=== PATIENT | female | born 1955 | race Caucasian/White ===

== ENCOUNTER 2016-09-26 18:31 | Emergency (ER) | payer OTHER ==
[~2016-09-26] VITALS: Ht 152.4 cm; Wt 82.6 kg
[~2016-09-26 18:31] MED LIST: ASPI325T PO; CLIN150 PO; LANSO15 PO; PRED20 PO
[2016-09-26 18:37] VITALS: BP 158/76; PULSE 89; RESP 17; TEMP 98.1; O2SAT 96
--- NOTE | 2016-09-26 18:42 | PD ---
Physical Exam Date Seen by Provider: Sep 26, 2016 Time Seen by Provider: 18:40 Narrative 60 year old female presents to the emergency department for evaluation of RLQ abdominal pain. Patient reports history of appendectomy. Pain has been intermittent for approximately a year, but worsened today. No nausea, vomiting , diarrhea. Patient awaiting bed placement. Data Data Last Documented VS Vital Signs Date Time Temp Pulse Resp B/P Pulse Ox O2 Delivery O2 Flow Rate FiO2 09/26/16 18:37 98.1 89 17 158/76 96 MDM Supervised Visit with KORY: Evy Orr Sep 26, 2016 18:41
[2016-09-26] MEDS ORDERED: PRIL20CA9 PO (18:54)
--- NOTE | 2016-09-26 18:54 | PD ---
HPI Chief Complaint: Abdominal Pain Time Seen by Provider: 18:54 Travel History International Travel<30 days: No Contact w/Intl Traveler<30days: No Traveled to known affect area: No History of Present Illness HPI 60-year-old female presents to the emergency Department with complaint of right lower quadrant abdominal pain that has been on and off for the last 3-4 months with worsening of the past 2 weeks and then again worsening today. Pain was so bad she told her family that she needs come to the ER. She has not taken any medications or tried any trauma to relieve her symptoms. She denies dysuria, hematuria, urgency, frequency. Denies hematochezia. Reports having a normal bowel movement this morning. Denies fever, chills, nausea, vomiting, diarrhea. History of appendectomy. Denies history of kidney stones. Allergies to contrast media, Keflex, penicillin, sulfa. Does not have an established primary care provider. No other modifying factors or associated signs and symptoms. PFSH Past Medical History Hx Anticoagulant Therapy: No Cardiovascular Problems: No Chemotherapy: No Cerebrovascular Accident: No Diabetes: No GERD: Yes Respiratory: No ?: Not Past Surgical History Hysterectomy: Yes Oral Surgery: Yes Other Surgery: Yes (LUMPECTOMY) Social History Alcohol Use: No Tobacco Use: Yes (06/23 ppd) Substance Use: No Allergies-Medications (Allergen,Severity, Reaction): Coded Allergies: Iodinated Contrast Media (Verified Allergy, Severe, SWELLING, 09/26/16) Penicillin (Verified Allergy, Intermediate, 09/26/16) Keflex (Verified Allergy, Unknown, 09/26/16) Sulfa (Verified Allergy, Unknown, 09/26/16) Reported Meds & Prescriptions Reported Meds & Active Scripts Active Lortab (Hydrocodone-Acetaminophen) 5-325 Mg Tab 1 Tab PO Q4-6H PRN Reported Prilosec (Omeprazole) 20 Mg Cap 20 Mg PO DAILY Review of Systems Except as stated in HPI: all other systems reviewed are Neg Physical Exam Narrative GENERAL: Well-nourished, well-developed female patient, in no acute distress; afebrile, nontoxic-appearing SKIN: Warm and dry. HEAD: Atraumatic. Normocephalic. EYES: Pupils equal and round. No scleral icterus. No injection or drainage. ENT: Mucosa pink and moist. Airway patent. NECK: Trachea midline. CARDIOVASCULAR: Regular rate and rhythm. No murmur appreciated. RESPIRATORY: No accessory muscle use. Clear to auscultation. Breath sounds equal bilaterally. GASTROINTESTINAL: Obese. Abdomen soft, tenderness on palpation to right lower quadrant, nondistended. Hepatic and splenic margins not palpable. Bowel sounds are active 4 quadrants. Nonrigid. No rebound tenderness. No guarding. BACK: No CVA tenderness. MUSCULOSKELETAL: No obvious deformities. No clubbing. No cyanosis. No edema. NEUROLOGICAL: Awake and alert. Oriented 3. No obvious cranial nerve deficits. Motor grossly within normal limits. Normal speech. PSYCHIATRIC: Appropriate mood and affect; insight and judgment normal. Data Data Last Documented VS Vital Signs Date Time Temp Pulse Resp B/P Pulse Ox O2 Delivery O2 Flow Rate FiO2 09/26/16 21:05 89 20 150/74 98 09/26/16 19:01 Room Air 09/26/16 18:37 98.1 Orders Complete Blood Count With Diff (09/26/16 18:54) Comprehensive Metabolic Panel (09/26/16 18:54) Lipase (09/26/16 18:54) Urinalysis - C+S If Indicated (09/26/16 18:54) Iv Access Insert/Monitor (09/26/16 18:54) Ecg Monitoring (09/26/16 18:54) Oximetry (09/26/16 18:54) Sodium Chloride 0.9% Flush (Ns Flush) (09/26/16 19:00) Ct Abd/Pel W/O Iv Contrast (09/26/16 18:54) Labs Laboratory Tests Test 09/26/16 09/26/16 19:05 19:30 Urine Color LIGHT-YELLOW Urine Turbidity CLEAR Urine pH 6.5 Urine Specific [place] 1.005 Urine Protein NEG mg/dL Urine Glucose (UA) NEG mg/dL Urine Ketones NEG mg/dL Urine Occult Blood NEG Urine Nitrite NEG Urine Bilirubin NEG Urine Urobilinogen LESS THAN 2.0 MG/DL Urine Leukocyte Esterase MOD Urine WBC 1 /hpf Urine Squamous Epithelial 1 /hpf Cells Urine Bacteria FEW /hpf Microscopic Urinalysis Comment CULT NOT INDICATED White Blood Count 6.7 TH/MM3 Red Blood Count 4.65 MIL/MM3 Hemoglobin 14.2 GM/DL Hematocrit 41.1 % Mean Corpuscular Volume 88.4 FL Mean Corpuscular Hemoglobin 30.6 PG Mean Corpuscular Hemoglobin 34.6 % Concent Red Cell Distribution Width 13.7 % Platelet Count 170 TH/MM3 Mean Platelet Volume 9.1 FL Neutrophils (%) (Auto) 74.4 % Lymphocytes (%) (Auto) 16.6 % Monocytes (%) (Auto) 7.6 % Eosinophils (%) (Auto) 1.0 % Basophils (%) (Auto) 0.4 % Neutrophils # (Auto) 5.0 TH/MM3 Lymphocytes # (Auto) 1.1 TH/MM3 Monocytes # (Auto) 0.5 TH/MM3 Eosinophils # (Auto) 0.1 TH/MM3 Basophils # (Auto) 0.0 TH/MM3 CBC Comment DIFF FINAL Differential Comment Sodium Level 139 MEQ/L Potassium Level 3.6 MEQ/L Chloride Level 104 MEQ/L Carbon Dioxide Level 29.6 MEQ/L Anion Gap 5 MEQ/L Blood Urea Nitrogen 6 MG/DL Creatinine 0.64 MG/DL Estimat Glomerular Filtration 95 ML/MIN Rate Random Glucose 100 MG/DL Calcium Level 9.0 MG/DL Total Bilirubin 0.5 MG/DL Aspartate Amino Transf 10 U/L (AST/SGOT) Alanine Aminotransferase 12 U/L (ALT/SGPT) Alkaline Phosphatase 61 U/L Total Protein 7.0 GM/DL Albumin 3.7 GM/DL Lipase 100 U/L [facility] Medical Decision Making Medical Screen Exam Complete: Yes Emergency Medical Condition: Yes Medical Record Reviewed: Yes Differential Diagnosis Colitis, kidney stone, urinary tract infection, pyelonephritis, abscess Narrative Course 60-year-old female with right lower quadrant abdominal pain. Patient placed on cardiopulmonary monitor. IV set obtained. Allergies to contrast media. CBC, CMP, lipase ordered. Urinalysis ordered. CT abdomen/pelvis ordered. 1956: Urinalysis negative for infection. Urine Culture not indicated. 2030: CT abdomen/pelvis concludes: Abdomen/Pelvis CT 09/26/16 1854 Signed Impressions: Service Date/Time: Monday, September 26, 2016 19:17 - CONCLUSION: 1. 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 There is some induration in the medial aspect of the right inguinal hernia and around a segment of small bowel in the peritoneal cavity adjacent to this hernia. The mild thickening of the small bowel and minimal induration around this area is nonspecific. It could be secondary to it intermittently being involved in the adjacent hernia. It is not currently involved with that hernia. Other causes for mild inflammatory change including enteritis in a focal area of small bowel can be considered. No abscess is seen. 2. Midline abdominal hernia containing mesenteric fat. There is also a potential hernia seen at the right inguinal region. Tal Howell MD Call out to gen. surgeon. 2039: I spoke with Dr. Hager, general surgeon, and he recommended to call the radiologist and confirmed the findings are not acute and there is no incarcerated bowel seen on the CT scan; recommended for the patient to follow up with him in his office on Thursday or Thursday this coming week; and recommended giving the patient the option to stay and be observed for 23 hour observation. 2044: I called and spoke with Dr. Sosa, radiologist, and he reports the findings are chronic and there is an induration of the right inguinal hernia and nothing is acute at this time. 2049: I discussed the CT findings with the patient. On reexamination the patient says she is in no pain anymore and would like to be discharged home. The patient does not appear painful when she is resting comfortably in the bed. She has been up and ambulating in the hallway comfortably. The plan of care was discussed with Dr. Gee, my attending physician, and he agrees the patient is stable for discharge. The patient was instructed to return to the emergency department if symptoms return. The patient verbalized understanding and agreement with treatment plan. Lortab prescribed for home. Instructed patient to follow-up with Dr. Andersen, or general surgeon of choice, on Thursday or Thursday and she verbalizes understanding and agreement. Patient verbalizes understanding and agreement with treatment plan. Patient is medically cleared and stable for discharge. Discussed reasons to return to the emergency department. Instructed patient to follow up with primary care provider. Patient agrees with treatment plan. The patients vital signs are stable and the patient is stable for outpatient follow-up and treatment. Patient discharged home, stable and in no acute distress. Diagnosis Primary Impression: Right inguinal hernia Additional Impression: Spigelian hernia Referrals: Marco Hager MD Primary Care Physician Patient Instructions: General Instructions, Inguinal Hernia (ED) Additional Instructions: Follow-up with Dr. Bella, or general surgeon of choice, on Thursday or Thursday Follow-up with primary care provider Return to the emergency department immediately with worsening of symptoms Med/Other Pt SpecificInfo: Prescription(s) given Scripts Hydrocodone-Acetaminophen (Lortab)5-325 Mg Tab1 Tab PO Q4-6H PRN (PAIN) #15 TAB Ref 0 Prov:Phillip Gee MD 09/26/16 Disposition: 01 DISCHARGE HOME Condition: Stable Kelin Pichardo Sep 26, 2016 18:54
[2016-09-26] MEDS ORDERED: SODIUM CHLORIDE 0.9% FLUSH 10 ML FLUSH IV FLUSH PRN (19:00)
[2016-09-26 19:01] VITALS: PULSE 76; RESP 18; O2SAT 96
[2016-09-26 19:38] LABS: BACTERIA, URINE FEW /hpf; BLOOD, URINE NEG (NEG); COMMENT (UR) CULT NOT INDICATED; CULTURE IF INDICATED CULT NOT INDICATED; GLUCOSE,URINE NEG (NEG); KETONE, URINE NEG (NEG); NITRITE,URINE NEG (NEG); PH, URINE 6.5 (5.0-8.5); SQUAMOUS EPITHELIAL CELL URINE 1 /hpf (0-5); URINE COLOR LIGHT-YELLOW (YELLW/STRAW)
--- NOTE | 2016-09-26 20:01 | RADRPT ---
EXAM DATE/TIME: 09/26/2016 19:17 [facility] COMPARISON: CT ABDOMEN & PELVIS W/O CONTRAST, August 22, 2013, 17:40. INDICATIONS : Right lower quadrant pain times one year; worse today. ORAL CONTRAST: No oral contrast ingested. RADIATION DOSE: 16.72 CTDIvol (mGy) MEDICAL HISTORY : Gastroesophageal reflux disease. SURGICAL HISTORY : Hysterectomy. Lumpectomy ENCOUNTER: Initial ACUITY: 1 year PAIN SCALE: 6/10 LOCATION: Abdomen TECHNIQUE: Volumetric scanning of the abdomen and pelvis was performed. Using automated exposure control and adjustment of the mA and/or kV according to patient size, radiation dose was kept as low as reasonably achievable to obtain optimal diagnostic quality images. FINDINGS: The liver, spleen, pancreas, adrenal glands and kidneys appear grossly normal. Atheros clerotic calcifications are seen throughout the arterial system. No aneurysm is seen. The patient do es have a midline abdominal hernia at the umbilicus containing only mesenteric fat. There also appea rs to be bilateral Spigelian hernias seen lateral to the rectus abdominal muscles containing fat. Th ere is some induration seen in the medial right Spigelian hernia. There also appears to be some mini mal thickening of the an adjacent area of small bowel which is clearly within the peritoneal cavity. There is some minimal inflammatory change and induration seen in the fat around this segment of smal l bowel. There is also prominent fat within the right inguinal canal suggesting a possible hernia. T here is some scattered colonic diverticula without inflammatory change seen around the colon. The pel alexsandra structures appear grossly intact. The patient appears to be status post hysterectomy. No pelvic mass is seen. The bony structures are unremarkable. The lung bases are unremarkable. CONCLUSION: 1. 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 There is some induration in the medial aspect of the right ing uinal hernia and around a segment of small bowel in the peritoneal cavity adjacent to this hernia. T he mild thickening of the small bowel and minimal induration around this area is nonspecific. It coul d be secondary to it intermittently being involved in the adjacent hernia. It is not currently invol ric with that hernia. Other causes for mild inflammatory change including enteritis in a focal area of small bowel can be considered. No abscess is seen. 2. Midline abdominal hernia containing mesenteric fat. There is also a potential hernia seen at the right inguinal region. Tal Howell MD on September 26, 2016 at 19:47 Board Certified Radiologist. This report was verified electronically.
[2016-09-26 20:02] LABS: BASOPHIL % 0.4 % (0.0-2.0); EOSINOPHIL # 0.1 TH/MM3 (0-0.4); HEMATOCRIT 41.1 % (35.0-46.0); HEMO FLAGS DIFF FINAL; LYMPH % 16.6 % (9.0-44.0); LYMPHOCYTE # 1.1 TH/MM3 (1.0-4.8); MEAN CELL VOLUME 88.4 FL (80.0-100.0); MEAN CORPUSCULAR HEMOGLOBIN 30.6 PG (27.0-34.0); MEAN CORPUSCULAR HGB CONC 34.6 % (32.0-36.0); MONO % 7.6 % (0.0-8.0); NEUT % 74.4 % (16.0-70.0); PLATELET COUNT 170 TH/MM3 (150-450); RED BLOOD COUNT 4.65 MIL/MM3 (4.00-5.30); RED CELL DISTRIBUTION WIDTH 13.7 % (11.6-17.2); WHITE BLOOD COUNT 6.7 TH/MM3 (4.0-11.0)
[2016-09-26 20:15] LABS: ALKALINE PHOSPHATASE 61 U/L (45-117); ALT (GPT) 12 U/L (10-53); ANION GAP 5 MEQ/L (5-15); AST (GOT) 10 U/L (15-37); BICARBONATE 29.6 MEQ/L (21.0-32.0); BLOOD UREA NITROGEN 6 MG/DL (7-18); CHLORIDE 104 MEQ/L (98-107); GLOMERULAR FILTRATION RATE 95 ML/MIN (>89); POTASSIUM 3.6 MEQ/L (3.5-5.1); SODIUM (NA) 139 MEQ/L (136-145); TOTAL BILIRUBIN ADULT 0.5 MG/DL (0.2-1.0)
[2016-09-26] MEDS ORDERED: HYDR-3533 PO (20:57)
[2016-09-26 21:05] VITALS: BP 150/74
[2016-11-14] MEDS ORDERED: OMEP20TA PO (13:28)
[2016-11-18] MEDS ORDERED: HYDR-3533 PO (11:42)
[2016-11-18] MEDS ORDERED: PROT40TA PO (11:42)
[2016-11-18] MEDS ORDERED: SUCR1TAB PO (11:42)
[2016-11-18] MEDS ORDERED: OS-CTAB3 PO (11:42)
[2016-11-18] MEDS ORDERED: MULT1TAB61 PO (11:42)
== END 2016-09-26 21:08 | disposition home or self-care (01) ==
LOC: NEPD 18:31
DX: K40.90 Unilateral inguinal hernia, without obstruction or gangrene, not specified as recurrent (principal); K43.9 Ventral hernia without obstruction or gangrene; F17.200 Nicotine dependence, unspecified, uncomplicated; Z87.19 Personal history of other diseases of the digestive system
CPT/HCPCS: 74176; 80053; 81001; 83690; 85025

== ENCOUNTER → 2016-11-18 | Day surgery (SDC) | payer OTHER ==
[~2016-11-18] VITALS: Ht 149.9 cm; Wt 82.7 kg
[~2016-11-18] MED LIST changes: -ASPI325T PO; +CHLORHEXIDINE GLUCONATE 2 % 1 PACK (2 CLOTHS) TOPICAL PRN; -CLIN150 PO; +CLINDAMYCIN 600 MG/NS 100 ML IV SCH; +HYDR-3533 PO; +INSULIN HUMAN REGULAR 1,000 UNITS/10 ML VIAL SQ PRN; +LACTATED RINGER'S 1000 ML IV PRN; -LANSO15 PO; +METOPROLOL TARTRATE 25 MG TAB PO PRN; +MULT1TAB61 PO; +OMEP20TA PO; +OS-CTAB3 PO; -PRED20 PO; +PROT40TA PO; +SODIUM CHLORID 0.9% 500 ML IV PRN; +SODIUM CHLORIDE 0.9% INJ 100 ML ONE; +SUCR1TAB PO
[2016-11-18 11:49] VITALS: BP 139/74; PULSE 66; RESP 20; TEMP 99; O2SAT 94
--- NOTE | 2016-11-18 12:00 | EKG ---
Date Performed: 11/18/2016 Time Performed: 11:51:08 PTAGE: 60 years EKG: Sinus rhythm NORMAL ECG PREVIOUS TRACING : 03/15/2015 20.47 No significant change from previous tracing noted. DOCTOR: Dago Rojas Interpretating Date/Time 11/18/2016 12:00:16
[2016-11-18 12:22] LABS: AUTOMATED NEUTROPHIL # 3.9 TH/MM3 (1.8-7.7); BASOPHIL % 0.6 % (0.0-2.0); EOSINOPHIL # 0.1 TH/MM3 (0-0.4); EOSINOPHIL % 1.1 % (0.0-4.0); HEMATOCRIT 41.8 % (35.0-46.0); HEMO FLAGS DIFF FINAL; LYMPH % 22.7 % (9.0-44.0); LYMPHOCYTE # 1.3 TH/MM3 (1.0-4.8); MEAN CELL VOLUME 88.5 FL (80.0-100.0); MEAN CORPUSCULAR HEMOGLOBIN 28.8 PG (27.0-34.0); MEAN CORPUSCULAR HGB CONC 32.6 % (32.0-36.0); MONO % 8.4 % (0.0-8.0); NEUT % 67.2 % (16.0-70.0); PLATELET COUNT 141 TH/MM3 (150-450); RED BLOOD COUNT 4.73 MIL/MM3 (4.00-5.30); RED CELL DISTRIBUTION WIDTH 13.2 % (11.6-17.2); WHITE BLOOD COUNT 5.9 TH/MM3 (4.0-11.0)
[2016-11-18 12:52] LABS: BICARBONATE 27.7 MEQ/L (21.0-32.0)
== END | disposition home or self-care (01) ==
LOC: HSDC 11:04
PROVIDERS: ATTEND Surgery
DX: K43.6 Other and unspecified ventral hernia with obstruction, without gangrene (principal); Z01.810 Encounter for preprocedural cardiovascular examination; Z53.9 Procedure and treatment not carried out, unspecified reason
CPT/HCPCS: 80048; 85025; 93005; G0463; J7120; 99211

== ENCOUNTER → 2017-01-07 | Day surgery (SDC) | payer OTHER ==
[~2017-01-07] VITALS: Ht 152.4 cm; Wt 80.8 kg
[~2017-01-07] MED LIST changes: +*morphine SULFATE 8 MG/ML PERIprocedure ONLY ONE; +BUPIVACAINE LIPOSOME PF 1.3% 20 ML VIAL ONE; +CLINDAMYCIN PHOS 600 MG/4 ML VIAL ONE; +DO NOT ADM ANY ANTICOAGULANT DRUGS PRN; -HYDR-3533 PO; +LACTATED RINGER'S 1000 ML INJ 1,000 ML IV ONE; +MIDAZOLAM HCL 2 MG/2 ML VIAL ONE; +NORMOSOL R INJ 1,000 ML IV ONE; -OMEP20TA PO; +ONDANSETRON HCL 4 MG/2 ML VIAL IV PUSH ONE; +ONDANSETRON HCL 4 MG/2 ML VIAL ONE; +PROPOFOL 200 MG/20 ML AMP IV ONE; +SUGAMMADEX SODIUM 200 MG/2 ML VIAL IV PUSH ONE; +ePHEDrine/NS 25 MG/5 ML SYR IV ONE; +fentaNYL CITRATE 250 MCG/5 ML AMP ONE
[2017-01-07 10:21] VITALS: BP 137/69; PULSE 65; RESP 16; TEMP 98.2; O2SAT 96
[2017-01-07 10:50] LABS: AUTOMATED NEUTROPHIL # 3.1 TH/MM3 (1.8-7.7); BASOPHIL % 0.6 % (0.0-2.0); EOSINOPHIL # 0.1 TH/MM3 (0-0.4); EOSINOPHIL % 1.1 % (0.0-4.0); HEMATOCRIT 41.1 % (35.0-46.0); HEMO FLAGS DIFF FINAL; LYMPH % 27.8 % (9.0-44.0); LYMPHOCYTE # 1.4 TH/MM3 (1.0-4.8); MEAN CELL VOLUME 87.7 FL (80.0-100.0); MEAN CORPUSCULAR HEMOGLOBIN 30.2 PG (27.0-34.0); MEAN CORPUSCULAR HGB CONC 34.4 % (32.0-36.0); MONO % 9.2 % (0.0-8.0); NEUT % 61.3 % (16.0-70.0); PLATELET COUNT 208 TH/MM3 (150-450); RED BLOOD COUNT 4.69 MIL/MM3 (4.00-5.30); RED CELL DISTRIBUTION WIDTH 13.5 % (11.6-17.2)
[2017-01-07 11:19] LABS: BICARBONATE 26.5 MEQ/L (21.0-32.0)
[2017-01-07 11:26] LABS: POTASSIUM 4.1 MEQ/L (3.5-5.1)
--- NOTE | 2017-01-07 15:02 | HHI.PR ---
Immediate Post Op Note Procedure Date: Jan 07, 2017 Pre Op Diagnosis: (1) Spigelian hernia Post Op Diagnosis: (1) Spigelian hernia Surgeon: Marco Hager Records Officer(s): none Procedure: robotic assisted repair of bilateral spigelian hernias and umbilical hernia Complications: none Estimated blood loss: 25ml Anesthesia: General, Regional Block Drains: None IVF Patient to: PACU Patient Condition: Good Marco Hager MD Jan 07, 2017 15:02
[2017-01-07 16:27] VITALS: BP 121/69; PULSE 55; RESP 20; TEMP 97.4; O2SAT 93
--- NOTE | 2017-01-08 08:33 | MP ---
cc: JULISSA CADENA DATE OF SURGERY 01/07/2017 PREOPERATIVE DIAGNOSIS Umbilical hernia and bilateral Spigelian hernias. POSTOPERATIVE DIAGNOSIS Umbilical hernia and bilateral Spigelian hernias. PROCEDURE 1. Robotic-assisted repair of umbilical hernia 2 cm x 2 cm chronically fat incarcerated. Primary repair. 2. Repair of bilateral spigelian hernias size to 3 cm x 3 cm bilaterally chronically fat, primary repaired. ANESTHESIA General and regional tap block. ATTENDING SURGEON Julissa Cadena MD [employer] Staff BLOOD LOSS 25 cc COMPLICATIONS None FINDINGS A 3 cm x 3 cm Spigelian hernia on the right, 3 cm x 3 cm Spigelian hernia on the left, a 2 cm x 2 cm umbilical hernia at the midline of the umbilicus all chronically fat incarcerated with no visceral incarceration. Some minimal intra-abdominal adhesions. INDICATIONS FOR PROCEDURE The patient is a 61-year-old female with worsening abdominal pain with ambulation and lifting. The patient underwent evaluation by her primary care doctor including a CT scan for abdominal pain which showed umbilical and bilateral Spigelian hernias. There was also incidental findings of inguinal hernias with history of very tiny fat incarcerated that were non-symptomatic. The patient mainly had symptoms from her Spigelian hernias. I did discuss the risks, benefits, and alternatives to repair this including multiple options of open, laparoscopic, robotic with and without mesh. Discussed the risks and benefits of all the procedures. The patient did elect to undergo robotic assisted primary repair of these hernias. PROCEDURE The patient was taken to the operating room at [facility], placed in the supine position and placed under general endotracheal anesthesia. The patient's abdomen was prepped and draped in a sterile fashion. Time-out was performed. The abdomen was entered laparoscopically through a Sanchez direct entry type technique below the xiphoid. We made a 1 cm incision, dissected down with S-retractors and open the fascia under good visualization. We placed a 10-mm trocar into the abdomen and a 5 mm 30 degree camera into the abdomen and insufflated the abdomen. We surveyed the abdomen. There was no evidence of any complication from our entry. At this point in time, we placed two 8 mm robot ports, one in the right upper quadrant, one in the left upper quadrant under the visualization of the laparoscope. We also placed a 5 mm gift shop assistant port in the right lateral midabdomen under the direct visualization of the laparoscope. We were then able to visualize the hernias at that time. We were then able to dock the Da [employer] SI robotic system without difficulty. Using a 30 degree Up camera, fenestrated bipolar in arm two and the electrocautery in arm one. We took down some minimal adhesions of the omentum at the midline. We took down the peritoneal linings and hernia sacs of all three hernias. Some incarcerated preperitoneal fat involving three areas was divided and was later removed from the abdomen at the end of the case with an EndoCatch bag. We then turned our attention towards repair. We repaired the right Spigelian hernia primarily using multiple layer running V-lock suture. This was a permanent suture and was tied to itself at the end. We had excellent repair of this in multiple layers at the fascial level. We did also use a 3-0 Vicryl suture to tack up the peritoneum over the V-lock suture and over the repair essentially reperitonealizing this area of the abdomen. The umbilical hernia and the left Spigelian hernia were repaired in likewise fashion with the exception that the umbilical hernia was not reperitonealized as there is no peritoneal lining to close over this and there was this was up into the umbilicus and was not in contact with any viscera. At this point in time, we turned our attention towards completion. Again as mentioned earlier, we removed the preperitoneal fat that was taken out of the hernias. We were able to move all ports under visualization of the laparoscope after we had removed the robotic SI System. We then expressed pneumoperitoneum. We closed the 10-mm port site with a [id number] 0 Vicryl suture. We closed the skin with 4-0 Monocryl and Dermabond. The patient was transported to the recovery room in stable condition. The patient tolerated the procedure well. No apparent complications. All counts were correct and I was present and scrubbed for the entire procedure. MD IDRIS Bravo/MELLO /2:59 PM /8:19 AM
== END | disposition home or self-care (01) ==
LOC: HSDC 09:06
PROVIDERS: ATTEND Surgery
DX: K42.9 Umbilical hernia without obstruction or gangrene (principal); K43.9 Ventral hernia without obstruction or gangrene; K66.0 Peritoneal adhesions (postprocedural) (postinfection)
CPT/HCPCS: 00752; 49652; 76937; 80048; 85025; C9290; J2250; J2270; J2405; J3010; J7120

== ENCOUNTER 2017-05-10 04:27 | Emergency (ER) | payer OTHER ==
[~2017-05-10] VITALS: Ht 152.4 cm; Wt 75.0 kg
[~2017-05-10 04:27] MED LIST changes: -*morphine SULFATE 8 MG/ML PERIprocedure ONLY ONE; -BUPIVACAINE LIPOSOME PF 1.3% 20 ML VIAL ONE; -CHLORHEXIDINE GLUCONATE 2 % 1 PACK (2 CLOTHS) TOPICAL PRN; -CLINDAMYCIN 600 MG/NS 100 ML IV SCH; -CLINDAMYCIN PHOS 600 MG/4 ML VIAL ONE; -DO NOT ADM ANY ANTICOAGULANT DRUGS PRN; -INSULIN HUMAN REGULAR 1,000 UNITS/10 ML VIAL SQ PRN; -LACTATED RINGER'S 1000 ML INJ 1,000 ML IV ONE; -LACTATED RINGER'S 1000 ML IV PRN; -METOPROLOL TARTRATE 25 MG TAB PO PRN; -MIDAZOLAM HCL 2 MG/2 ML VIAL ONE; -NORMOSOL R INJ 1,000 ML IV ONE; -ONDANSETRON HCL 4 MG/2 ML VIAL IV PUSH ONE; -ONDANSETRON HCL 4 MG/2 ML VIAL ONE; -PROPOFOL 200 MG/20 ML AMP IV ONE; -SODIUM CHLORID 0.9% 500 ML IV PRN; -SODIUM CHLORIDE 0.9% INJ 100 ML ONE; -SUGAMMADEX SODIUM 200 MG/2 ML VIAL IV PUSH ONE; -ePHEDrine/NS 25 MG/5 ML SYR IV ONE; -fentaNYL CITRATE 250 MCG/5 ML AMP ONE
[2017-05-10 04:34] VITALS: BP 149/72; PULSE 65; RESP 18; TEMP 97.9; O2SAT 98
--- NOTE | 2017-05-10 05:04 | PD ---
HPI Chief Complaint: Allergic/Adverse Reaction Time Seen by Provider: 05:01 Travel History International Travel<30 days: No Contact w/Intl Traveler<30days: No Traveled to known affect area: No History of Present Illness HPI 61-year-old female patient with history of shellfish allergies, presents to the ER today because she states that 2 and half days ago she had been in a restaurant and is possible that there might of been cross contamination with [employer] [place]. She states that since 2 days ago she started having a rash on her trunk and arms and she started having itchiness on her eyelid last night, has been taking Benadryl but states it is not subsiding. She denies any trouble she was shortness of breath, swallowing, or other symptoms. She denies any new medications. Modifying Factors: None Associated Signs & Symptoms: Allergic reaction Risk Factors: History of allergic reaction to shellfish PFSH Past Medical History Hx Anticoagulant Therapy: No Cancer: No Cardiovascular Problems: No Chemotherapy: No Cerebrovascular Accident: No Diabetes: No Endocrine: No GERD: Yes Genitourinary: No Hepatitis: No Hiatal Hernia: Yes (REPAIRED) Immune Disorder: No Musculoskeletal: No Neurologic: No Psychiatric: No Reproductive: No Respiratory: No Thyroid Disease: No Past Surgical History Abdominal Surgery: Yes (HERNIA REPAIR) AICD: No Appendectomy: Yes Cardiac Surgery: No Ear Surgery: No Endocrine Surgery: No Eye Surgery: No Genitourinary Surgery: No Gynecologic Surgery: No Hysterectomy: Yes Joint Replacement: No Oral Surgery: Yes Pacemaker: No Thoracic Surgery: No Other Surgery: Yes (LUMPECTOMY) Social History Alcohol Use: No Tobacco Use: Yes (1PPD) Substance Use: No Allergies-Medications (Allergen,Severity, Reaction): Coded Allergies: Iodinated Contrast- Oral and IV Dye (Unverified Allergy, Severe, SWELLING , 05/10/17) penicillin G (Unverified Allergy, Intermediate, 05/10/17) shellfish derived (Verified Allergy, Intermediate, Swelling, 05/10/17) Sulfa (Sulfonamide Antibiotics) (Unverified Allergy, Unknown, 05/10/17) cephalexin (Unverified Allergy, Unknown, 05/10/17) Reported Meds & Prescriptions Reported Meds & Active Scripts Active No Active Prescriptions or Reported Medications Review of Systems Except as stated in HPI: all other systems reviewed are Neg Physical Exam Narrative GENERAL: Well-developed elderly white female patient currently in mild distress. Awake and oriented 3. SKIN: Focused skin assessment warm/dry. Notable for urticaria to the arms and legs. HEAD: Atraumatic. Normocephalic. EYES: Pupils equal and round. No scleral icterus. No injection or drainage. ENT: No nasal bleeding or discharge. Mucous membranes pink and moist. No signs of angioedema. NECK: Trachea midline. No JVD. CARDIOVASCULAR: Regular rate and rhythm. No murmur appreciated. RESPIRATORY: No accessory muscle use. Clear to auscultation. Breath sounds equal bilaterally. GASTROINTESTINAL: Abdomen soft, non-tender, nondistended. Hepatic and splenic margins not palpable. MUSCULOSKELETAL: No obvious deformities. No clubbing. No cyanosis. No edema. NEUROLOGICAL: Awake and alert. No obvious cranial nerve deficits. Motor grossly within normal limits. Normal speech. PSYCHIATRIC: Appropriate mood and affect; insight and judgment normal. Data Data Last Documented VS Vital Signs Date Time Temp Pulse Resp B/P (MAP) Pulse Ox O2 Delivery O2 Flow Rate FiO2 05/10/17 05:32 68 18 137/73 (94) 97 Room Air 05/10/17 04:34 97.9 Orders Orders Ecg Monitoring (05/10/17 05:01) Iv Access Insert/Monitor (05/10/17 05:01) Oximetry (05/10/17 05:01) Diphenhydramine Inj (Benadryl Inj) (05/10/17 05:15) Methylprednisolone So Succ Inj (Solumedr (05/10/17 05:15) Sodium Chloride 0.9% Flush (Ns Flush) (05/10/17 05:15) MDM Medical Decision Making Medical Screen Exam Complete: Yes Emergency Medical Condition: Yes Medical Record Reviewed: Yes Differential Diagnosis Allergic reaction Narrative Course Patient is not exhibiting any signs of angioedema. She was given Solu-Medrol and Benadryl in the ER. She was observed in the ER and appears to be doing well. At this point, my plan would be to give her further treatment for allergic reaction and follow-up with primary care. Return for any worsening in symptoms, difficulty breathing, lip swelling, and as needed. The plan was discussed with her and she states understanding. Diagnosis Primary Impression: Allergic reaction Med/Other Pt SpecificInfo: Prescription(s) given Scripts Epinephrine Inj (Epinephrine Inj) 0.3 Mg/0.3 Ml Pfpen 0.3 MG SQ ONCE Y for ALLERGIC REACTION, #1 PEN 0 Refills Prov: Darien Holden MD 05/10/17 Diphenhydramine HCl (Benadryl Allergy) 25 Mg Cap 25 MG PO QID Y for ALLERGIC REACTION, #20 Prov: Darien Holden MD 05/10/17 Methylprednisolone Dosepak (Medrol Dosepak) 4 Mg Dspk 4 MG PO DIRECTED, #1 DSPK 0 Refills Per Pharmacist direction Prov: Darien Holden MD 05/10/17 Disposition: 01 DISCHARGE HOME Condition: Stable Darien Holden MD May 10, 2017 05:04
[2017-05-10 05:06] VITALS: BP 137/73; PULSE 68; RESP 18; O2SAT 97
[2017-05-10] MEDS ORDERED: diphenhydrAMINE HCL 50 MG/ML VIAL IVP ONE (05:15)
[2017-05-10] MEDS ORDERED: methylPREDNISolone SOD SUCC 125 MG/2 ML VIAL IV PUSH ONE (05:15)
[2017-05-10] MEDS ORDERED: SODIUM CHLORIDE 0.9% FLUSH 10 ML FLUSH IV FLUSH PRN (05:15)
[2017-05-10 05:32] VITALS: BP 137/73; PULSE 68; RESP 18; O2SAT 97
[2017-05-10] MEDS ORDERED: EPIN1INJ17 SQ (05:50)
[2017-05-10] MEDS ORDERED: MEDR4PAK PO (05:50)
[2017-05-10] MEDS ORDERED: BENA25CA4 PO (05:50)
== END 2017-05-10 06:28 | disposition home or self-care (01) ==
LOC: NEPC 04:27
DX: T78.40XA Allergy, unspecified, initial encounter (principal); R21 Rash and other nonspecific skin eruption; H57.8 Other specified disorders of eye and adnexa; K21.9 Gastro-esophageal reflux disease without esophagitis; F17.200 Nicotine dependence, unspecified, uncomplicated; Z79.899 Other long term (current) drug therapy; Z88.0 Allergy status to penicillin; Z88.2 Allergy status to sulfonamides; Z88.8 Allergy status to other drugs, medicaments and biological substances
CPT/HCPCS: 96374; 96375; 99284; J1200; J2930